=== PATIENT | male | born 1940 | race Hispanic/Latino ===

== ENCOUNTER 2025-06-29 05:52 | Day surgery (SDC) | payer MEDICARE ==
--- NOTE | 2025-06-28 11:39 | EKG ---
[facility] Test Date: 2025-06-28 Test Time: 11:34:44 Pat Name: KISHAN TREVIZO Department: [facility] Room: Gender: M Infertility Nurse: [id number] : 1940 Requested By: MIGUEL ANGEL CARMEN Order Number: [id number] Reading MD: Jessi Olson Measurements Intervals [place] Rate: 68 P: 0 OR: 0 QRS: -5 QRSD: 153 T: 5 QT: 431 QTc: 459 Interpretive Statements Atrial fibrillation Right bundle branch block Probable lateral infarct, old No previous ECG available for comparison Electronically Signed On 06-28-2025 12:41:10 BELT FIXER by Jessi Olson Please click the below link to view image of tracing.
[2025-06-28 11:42] LABS: IMMATURE GRANULOCYTE ABSOLUTE 0.03 K/uL (0-1); NUCLEATED RED BLOOD CELLS 0.0 % (0.0-0.19); PLATELET COUNT (AUTO) 242 K/uL (130-400); RED BLOOD CELL COUNT(AUTO) 4.27 MIL/uL (4.50-6.20); RED CELL DISTRIBUTION WIDTH 13.3 % (11.0-15.5); WHITE BLOOD COUNT (AUTO) 7.6 K/uL (4.8-10.8)
[2025-06-28 11:54] LABS: CREATININE 1.2 mg/dL (0.5-1.3); GLOMERULAR FILTR. RATE CALC 60.0 mL/min (>90); GLUCOSE,RANDOM 198.0 mg/dL (70-105); SODIUM SERUM 138.0 mmol/L (136-145); UREA NITROGEN, BLOOD 16.0 mg/dL (7-18)
[2025-06-28 12:07] LABS: INR 1.05 (0.85-1.15)
[2025-06-28 12:34] VITALS: BP 150/54; PULSE 77; RESP 17; TEMP 97.9
--- NOTE | 2025-06-28 14:06 | NUR ---
REPORT REPORTED EKG TO DR BOWER. OK TO PROCEED
[2025-06-29] VITALS (16 sets, daily range): BP systolic 140–159; BP diastolic 43–72; PULSE 59–76; RESP 13–18; TEMP 97.3–97.8
[~2025-06-29] VITALS: Ht 167.6 cm; Wt 80.7 kg
[2025-06-29] MEDS ORDERED: LIDOCAINE HCL 1% 20 ML VIAL ONE (06:17)
[2025-06-29] MEDS: 0.9%NACL 1000ML 1,000 ML IV ONE (06:37)
[2025-06-29] MEDS ORDERED: LIDOCAINE PF 100MG/5ML (2%) SYRINGE 5ML ONE (07:17)
--- NOTE | 2025-06-29 08:14 | OP ---
Operative Note: DATE OF PROCEDURE: 06/29/25 SURGEON: MIGUEL ANGEL CARMEN DPM [employer] SUPERVISOR: Rosi Navas ANESTHESIA: General PREOPERATIVE DIAGNOSIS: 1. Hallux limitus left foot 2. Hallux valgus left foot POSTOPERATIVE DIAGNOSIS: Same Findings: Bony prominences excised PROCEDURE: Cheilectomy and silver bunionectomy left foot ESTIMATED BLOOD LOSS: Minimal INDICATIONS: Patient has a chronic wound on the medial aspect of the foot which did not respond to the Wound Care due to the severe prominence secondary to osteophytosis around the 1st metatarsophalangeal joint and hallux valgus and hallux limitus deformity. Injectables: 15 cc of 0.5% Marcaine plain Specimen: Bone left foot Materials: 3-0, 4-0, Vicryl 4-0 nylon Hemostasis: Pneumonic thigh tourniquet at 275 mm Hg DESCRIPTION OF PROCEDURE: The patient was brought into the operating room and placed on table in a supine position. Time-out was called with the all the staff in the room to identify the patient, procedure and procedure site. Patient's left lower extremity was then prepped and draped in usual aseptic manner. The patient's left lower extremity was exsanguinated utilizing Esmarch bandage and pneumonic thigh tourniquet was inflated at 275 mm Hg. Two semi elliptical incision was made over the medial prominence of the hallux valgus over the 1st metatarsophalangeal joint to excise the chronic wound which at this point is healed and excised. The skin wedge was passed from the operative site. There was no communicating wound down to the bone. There was no sign of infection or purulent drainage. There was no necrosis of the bone. Linear longitudinal incision was then made over the medial aspect of the 1st MPJ and the capsular layer was reflected dorsally and plantarly. Medial prominence was then resected utilizing saw and passed from the operative site dorsal osteophyte was also resected and passed from the operative site remaining bone was smoothed. There was a ossicle in the medial aspect of the 1st MPJ which was resected. Resection of the bone was confirmed under the fluoroscopy in multiple views. Small 2 cm incision was made on the lateral aspect of the 1st MPJ dorsally. Incision was deepened bluntly down to the lateral capsule. Lateral capsule was punctured and suspensory sesamoidal ligament on the lateral aspect of the metatarsal head was suspended and transected to free up the sesamoid complex in order to release the lateral capsule to negate the retrograde buckling at the 1st MPJ to reduce hallux valgus deformity. The surgical wounds were irrigated aggressively utilizing copious amounts of normal sterile saline with a pressure. Capsular layer was reapproximated utilizing 3-0 Vicryl, subcutaneous tissue layer via 4-0 Vicryl, skin via 4-0 nyl on. The above injectable was utilized to obtain a local block. The surgical wound was dressed with dry sterile dressing followed by Sun dressing. Pneumonic thigh tourniquet was deflated. Revascularization of the toe was confirmed. MIGUEL ANGEL CARMEN DPM Jun 29, 2025 08:14
--- NOTE | 2025-06-29 11:36 | HMCIMG ---
Intraoperative films were obtained of the right foot. /[place]
== END 2025-06-29 09:40 | disposition home or self-care (01) ==
LOC: DAH 05:52
PROVIDERS: ATTEND Podiatrist
DX: M20.12 Hallux valgus (acquired), left foot (principal); M20.5X2 Other deformities of toe(s) (acquired), left foot; I70.223 Atherosclerosis of native arteries of extremities with rest pain, bilateral legs; K21.9 Gastro-esophageal reflux disease without esophagitis; E78.5 Hyperlipidemia, unspecified; N40.0 Benign prostatic hyperplasia without lower urinary tract symptoms; N18.30 Chronic kidney disease, stage 3 unspecified; E11.22 Type 2 diabetes mellitus with diabetic chronic kidney disease; Z88.6 Allergy status to analgesic agent; Z79.899 Other long term (current) drug therapy; Z98.890 Other specified postprocedural states
CPT/HCPCS: 80048; 85025; 85610; 85730; 36415; 93005; 28292; 82948 ×2; 73630; J1100; A4223 ×2; A4600; A6260; A4663; J3010; J7030; J0665 ×2; J2003; J3490; J2704; J2405; J1885; J0690 ×2; A4649; A4930 ×2; A4215; A4213; A4222; A4221; A4216